=== PATIENT | male | born 1965 | race Caucasian/White ===

== ENCOUNTER 2024-12-10 07:18 | Outpatient (CLI) | payer OTHER, SELFPAY ==
[2024-12-10 08:14] LABS: Immature Reticulocyte Fraction 34.1 % (3.0-15.9); Reticulocyte Hemoglobin Conten 26.4 pg (28.2-36.6); Reticulocytes Absolute 0.08 10^6/uL (0.02-0.10)
[2024-12-10 10:03] LABS: Vitamin B12 > 1000.0 pg/mL (239-931)
== END 2024-12-10 07:19 | disposition home or self-care (01) ==
PROVIDERS: PCP Internal Medicine; Visit Provider Internal Medicine
DX: D64.9 Anemia, unspecified (principal)
CPT/HCPCS: 36415; 82607; 82746; 83010; 83615; 85046; 86850; 86900; 86901